=== PATIENT | female | born 1970 | race Caucasian/White ===

== ENCOUNTER 2017-02-07 20:25 | Emergency (ER) | payer SELFPAY ==
[2017-02-07 21:58] LABS: BASOPHILS 0.3 %; BASOPHILS ABSOLUTE 0.02 10/3/uL (0.0-0.16); EOSINOPHILS 1.3 %; EOSINOPHILS ABSOLUTE 0.08 10/3/uL (0.0-0.53); ER CBC TAT 0 Hrs 07 Mins; LYMPHOCYTES 29.2 %; LYMPHOCYTES ABSOLUTE 1.75 10/3/uL (0.67-4.30); MEAN CORPUS HGB CONC 34.2 g/dL (32.0-36.0); MEAN CORPUSCULAR HEMOGLOB 31.1 pg (26.0-34.0); MEAN CORPUSCULAR VOLUME 90.9 fL (80-100); MEAN PLATELET VOLUME 10.6 fL (9.2-13.0); MONOCYTES 4.2 %; MONOCYTES ABSOLUTE 0.25 10/3/uL (0.21-1.20); NEUTROPHILS ABSOLUTE 3.89 10/3/uL (2.02-8.40); PLATELET COUNT 266 10/3/uL (150-400); RBC DISTRIBUTION WIDTH 13.4 % (12.0-16.0)
[2017-02-07 21:59] LABS: HEMOGLOBIN 14.7 g/dL (12.0-16.0); MANUAL DIFF NO %; RED CELL COUNT 4.73 10/6/uL (4.0-5.6)
[2017-02-07 22:06] LABS: PROTIME (NOT ORD) 13.2 SEC (12.0-14.5)
[2017-02-07 22:07] LABS: PARTIAL THROMBO TIME 34.3 SEC (22.5-37.2)
[2017-02-07 22:15] LABS: BUN (BLOOD UREA NITROGEN) 8 MG/DL (6-23); CALCIUM, SERUM 9.7 MG/DL (8.5-10.4); CHEST PAIN PROFILE TAT 0 Hrs 24 Mins; CHLORIDE, SERUM 105 MMOL/L (96-112); CO2 (CARBON DIOXIDE) 27 MMOL/L (24-34); CREATININE 0.83 MG/DL (0.55-1.02); GFR AFRICAN AMERICAN 97 ML/MIN (>=60); GFR NON AFRICAN AMERICAN 84 ML/MIN (>=60); GLUCOSE, SERUM 135 MG/DL (60-99); POTASSIUM, SERUM 3.5 MMOL/L (3.5-5.3); TROPONIN I <0.02 NG/ML (<0.05)
[2017-02-07 22:16] LABS: SODIUM, SERUM 141 MMOL/L (135-148)
== END 2017-02-07 23:30 | disposition home or self-care (01) ==
LOC: ER 20:25
PROVIDERS: Emergency Medicine
DX: G89.18 Other acute postprocedural pain (principal); R10.9 Unspecified abdominal pain; R50.82 Postprocedural fever; Z79.899 Other long term (current) drug therapy
CPT/HCPCS: 71010; 72125; 73030-LT; 80048; 83735; 84484; 85025; 85610; 85730; 93005; 96374; 96375; 99284; J1170; J2405; J2800; J2930

== ENCOUNTER 2017-02-24 17:02 | Emergency (ER) | payer SELFPAY ==
[2017-02-24 15:25] LABS: BASOPHILS 0.2 %; BASOPHILS ABSOLUTE 0.01 10/3/uL (0.0-0.16); EOSINOPHILS 0.3 %; EOSINOPHILS ABSOLUTE 0.02 10/3/uL (0.0-0.53); ER CBC TAT 0 Hrs 07 Mins; HEMATOCRIT 40.4 % (36.0-48.0); HEMOGLOBIN 13.5 g/dL (12.0-16.0); IMMATURE GRANULOCYTES 0.2 %; IMMATURE GRANULOCYTES ABSOLUTE 0.01 10/3/uL (0.0-0.11); LYMPHOCYTES 28.6 %; LYMPHOCYTES ABSOLUTE 1.78 10/3/uL (0.67-4.30); MEAN CORPUS HGB CONC 33.4 g/dL (32.0-36.0); MEAN CORPUSCULAR HEMOGLOB 30.1 pg (26.0-34.0); MEAN PLATELET VOLUME 9.6 fL (9.2-13.0); MONOCYTES 4.8 %; NEUTROPHILS 65.9 %; NEUTROPHILS ABSOLUTE 4.11 10/3/uL (2.02-8.40); PLATELET COUNT 219 10/3/uL (150-400); RBC DISTRIBUTION WIDTH 13.6 % (12.0-16.0); RED CELL COUNT 4.49 10/6/uL (4.0-5.6); WHITE BLOOD CELLS 6.2 10/3/uL (4.5-10.5)
[2017-02-24 15:26] LABS: MANUAL DIFF NO %
[2017-02-24 15:36] LABS: PARTIAL THROMBO TIME 30.3 SEC (22.5-37.2); PROTIME (NOT ORD) 13.4 SEC (12.0-14.5)
[2017-02-24 15:42] LABS: BUN (BLOOD UREA NITROGEN) 16 MG/DL (6-23); CHEST PAIN PROFILE TAT 0 Hrs 24 Mins; CHLORIDE, SERUM 108 MMOL/L (96-112); CO2 (CARBON DIOXIDE) 27 MMOL/L (24-34); CREATININE 0.68 MG/DL (0.55-1.02); GFR AFRICAN AMERICAN 121 ML/MIN (>=60); GFR NON AFRICAN AMERICAN 104 ML/MIN (>=60); GLUCOSE, SERUM 97 MG/DL (60-99); POTASSIUM, SERUM 4.4 MMOL/L (3.5-5.3); SODIUM, SERUM 141 MMOL/L (135-148); TROPONIN I <0.02 NG/ML (<0.05)
== END 2017-02-24 18:00 | disposition home or self-care (01) ==
LOC: ER 17:02
PROVIDERS: Emergency Medicine
DX: F41.0 Panic disorder [episodic paroxysmal anxiety] (principal); R51 Headache; F17.200 Nicotine dependence, unspecified, uncomplicated; Z88.0 Allergy status to penicillin; Z88.6 Allergy status to analgesic agent; Z88.5 Allergy status to narcotic agent; Z88.8 Allergy status to other drugs, medicaments and biological substances
CPT/HCPCS: 80048; 83735; 84484; 85025; 85610; 85730; 93005; 96374; 99284; J1200; J2765